=== PATIENT | male | born 1995 | race Caucasian/White ===

== ENCOUNTER → 2018-05-30 | Outpatient (CLI) | payer OTHER | LOC: LAB 17:27 | DX: J02.9 Acute pharyngitis, unspecified (principal); R53.83 Other fatigue ==

== ENCOUNTER → 2018-06-30 | Outpatient (CLI) | payer OTHER ==
[2018-06-30 09:38] LABS: HEMATOCRIT 45.5 % (42.0-52.0); HEMOGLOBIN 16.2 g/dL (13.5-18.0); MEAN CELL VOLUME 87 fl (78-100); MEAN CORPUSCULAR HEMOGLOBIN 31 pg (27-31); MEAN CORPUSCULAR HGB CONC 36 g/dL (33-37); MEAN PLATELET VOLUME 8.8 fl (7.4-10.4); PLATELET COUNT 354 K/mm3 (130-400); RED BLOOD COUNT 5.26 M/mm3 (4.20-5.60); RED CELL DISTRIBUTION WIDTH 12.2 % (11.5-14.5); WHITE BLOOD COUNT 5.3 K/mm3 (4.8-10.8)
[2018-06-30 09:41] LABS: ALBUMIN 4.8 g/dL (3.5-5.0); BUN/CREATININE RATIO 25.7 (6.0-26.0); CALCIUM 9.7 mg/dL (8.4-10.2); POTASSIUM 4.3 mmol/L (3.6-5.0); TOTAL BILIRUBIN 1.4 mg/dL (0.2-1.3); TOTAL PROTEIN 8.5 g/dL (6.3-8.2)
[2018-06-30 09:47] LABS: LYMPHOCYTE 23 % (20-51); MONOCYTE 15 % (3-10); NEUTROPHILS 61 % (42-75)
== END ==
LOC: LAB 09:10
PROVIDERS: Family Medicine
DX: Z00.00 Encounter for general adult medical examination without abnormal findings (principal)

== ENCOUNTER → 2018-11-28 | Outpatient (CLI) | payer OTHER ==
[2018-11-28 19:26] LABS: CALCIUM 9.9 mg/dL (8.4-10.2); POTASSIUM 3.9 mmol/L (3.6-5.0); TOTAL BILIRUBIN 1.2 mg/dL (0.2-1.3); TOTAL PROTEIN 8.6 g/dL (6.3-8.2)
[2018-12-02 12:28] LABS: ANGIOTENSIN CONVERTING ENZYME 53 U/L (8 - 53)
== END ==
LOC: LAB 16:47
PROVIDERS: Family Medicine
DX: D86.9 Sarcoidosis, unspecified (principal); R30.0 Dysuria; Z80.42 Family history of malignant neoplasm of prostate

== ENCOUNTER → 2018-12-08 | Outpatient (CLI) | payer OTHER | LOC: RAD 08:53 | DX: K76.9 Liver disease, unspecified (principal); D73.89 Other diseases of spleen; R30.0 Dysuria; D86.9 Sarcoidosis, unspecified; Z80.42 Family history of malignant neoplasm of prostate | CPT/HCPCS: Q9967 ==

== ENCOUNTER 2021-12-05 19:23 | Emergency (ER) | payer OTHER ==
[~2021-12-05] VITALS: Ht 182.9 cm; Wt 84.1 kg
[2021-12-05 20:42] LABS: BASO # 0.03 K/mm3 (0.02-0.10); EOS # 0.08 K/mm3 (0.04-0.40); EOS % 1.2 % (0.0-4.0); HEMATOCRIT 45.6 % (42.0-52.0); LYMPH# 0.63 K/mm3 (1.50-4.00); MEAN CELL VOLUME 88 fl (78-100); MEAN CORPUSCULAR HEMOGLOBIN 31 pg (27-31); MEAN CORPUSCULAR HGB CONC 35 g/dL (33-37); MEAN PLATELET VOLUME 8.3 fl (7.4-10.4); NEU # 4.89 K/mm3 (1.40-6.50); PLATELET COUNT 310 K/mm3 (130-400); RED BLOOD COUNT 5.18 M/mm3 (4.20-5.60); RED CELL DISTRIBUTION WIDTH 12.4 % (11.5-14.5); WHITE BLOOD COUNT 6.6 K/mm3 (4.8-10.8)
[2021-12-05] MEDS ORDERED: AMBIEN10 MG PO (20:42)
[2021-12-05] MEDS ORDERED: ADDERALL 20 MG20 MG PO (20:42)
[2021-12-05] MEDS ORDERED: ABILIFY20 MG PO (20:42)
[2021-12-05] MEDS ORDERED: XANAX 1MG1 MG PO (20:43)
[2021-12-05 20:56] LABS: ALBUMIN 4.5 g/dL (3.5-5.0); POTASSIUM 3.9 mmol/L (3.5-5.1)
[2021-12-05 20:57] LABS: CALCIUM 9.3 mg/dL (8.3-10.5)
[2021-12-05 20:58] LABS: TOTAL PROTEIN 7.6 g/dL (6.4-8.3)
[2021-12-05 21:00] LABS: TOTAL BILIRUBIN 1.1 mg/dL (0.2-1.2)
[2021-12-05 21:22] LABS: URINE APPEARANCE HAZY; URINE BILIRUBIN NEGATIVE (NEGATIVE); URINE BLOOD NEGATIVE (NEGATIVE); URINE COLOR YELLOW; URINE GLUCOSE NEGATIVE (NEGATIVE); URINE KETONE NEGATIVE (NEGATIVE); URINE LEUKOCYTE ESTERASE TRACE (NEGATIVE); URINE NITRATE NEGATIVE (NEGATIVE); URINE PROTEIN(semi-quant) 1+ (NEGATIVE); URINE UROBILINOGEN NORMAL (NORMAL)
[2021-12-05] MEDS ORDERED: PERCOCET 325 MG1 TA2 PO (21:32)
[2021-12-05 21:47] VITALS: BP 120/73
== END 2021-12-05 21:47 | disposition home or self-care (01) ==
LOC: ED 19:23
PROVIDERS: Physician Assistant
DX: N20.0 Calculus of kidney (principal)
CPT/HCPCS: J1885